=== PATIENT | male | born 1990 | race Caucasian/White ===

== ENCOUNTER 2024-06-13 22:57 | Emergency (ER) | payer OTHER ==
[2024-06-13] MEDS ORDERED: Ondansetron ODT 4 MG TAB ONE (23:54)
[2024-06-13] MEDS ORDERED: Dicyclomine 20 MG TAB ONE (23:54)
== END 2024-06-14 00:11 | disposition home or self-care (01) ==
LOC: CSHERS 22:57
DX: K52.9 Noninfective gastroenteritis and colitis, unspecified (principal)
CPT/HCPCS: 99283; Q0162